=== PATIENT | male | born 1990 | race Caucasian/White ===

== ENCOUNTER 2017-06-08 00:38 | Emergency (ER) | payer BC ==
[2017-06-08 00:48] VITALS: RESP 18
--- NOTE | 2017-06-08 01:21 | ED ---
Eye Problem HPI - General Chief complaint: Eye Problems Stated complaint: FB in Eye Time Seen by Provider: 06/08/17 00:57 Source: patient, RN notes reviewed Mode of arrival: ambulatory Limitations: no limitations - History of Present Illness Initial comments: 27 yo male presents to the ER with cc of right eye swelling and irritation. Patient states that on his way into work today he noticed on the plan to work better for the flu" was eye. Since she's been rubbing and itching his eyes so he was concerned. Patient statesthat it was swollen so he thought that he should be seen. Patient states that when he opened the eye is no changes in vision but it is swollen shut. Patient states he was concerned due to the findings.Patient denies any recent fever, chills, shortness of breath, chest pain, back pain, abdominal pain, nausea vomiting, numbness or tingling, dysuria or hematuria, constipation or diarrhea, headaches or visual changes, or any other current symptoms. - Related Data Previous Rx's Medication Instructions Recorded Tobramycin 0.3% Ophth Oint [Tobrex 1 applic RIGHT EYE TID #1 tube 06/08/17 0.3% Ophth Oint] Allergies Allergy/AdvReac Type Severity Reaction Status Date / Time No Known Allergies Allergy Verified 06/08/17 00:48 Review of Systems ROS Statement: Those systems with pertinent positive or pertinent negative responses have been documented in the HPI. ROS Other: All systems not noted in ROS Statement are negative. Past Medical History Past Medical History: No Reported History History of Any Multi-Drug Resistant Organisms: None Reported Past Surgical History: No Surgical Hx Reported Past Psychological History: No Psychological Hx Reported Smoking Status: Never smoker Past Alcohol Use History: Occasional Past Drug Use History: None Reported General Exam Limitations: no limitations General appearance: alert, in no apparent distress Head exam: Present: atraumatic, normocephalic, normal inspection Eye exam: Present: PERRL, EOMI, conjunctival injection (To the right eye), periorbital swelling (No redness no induration). Absent: scleral icterus Pupils: Present: normal accommodation ENT exam: Present: normal exam, mucous membranes moist Neck exam: Present: normal inspection. Absent: tenderness, meningismus, lymphadenopathy Respiratory exam: Present: normal lung sounds bilaterally. Absent: respiratory distress, wheezes, rales, rhonchi, stridor Cardiovascular Exam: Present: regular rate, normal rhythm, normal heart sounds. Absent: systolic murmur, diastolic murmur, rubs, gallop, clicks Neurological exam: Present: alert, oriented X3 Psychiatric exam: Present: normal affect, normal mood Skin exam: Present: warm, dry, intact, normal color. Absent: rash Course Vital Signs 06/08/17 00:45 Temperature 98.0 F Pulse Rate 53 L Respiratory 18 Rate Blood Pressure 121/77 O2 Sat by Pulse 98 Oximetry Medical Decision Making - Medical Decision Making 27-year-old male presents emergency Department with a chief complaint of right thigh swelling. This time patient does appear to be of localized reaction. Most likely from the patient itching and thigh. With lamp examination does not show any abrasion. This time we discussed ice for the eye. We discussed that we will give him eye ointment to start tomorrow if he noticed any redness or drainage from the eye. We did discuss follow-up and return parameters. We did discuss follow-up with Dr. Quintanilla is given Dr. Nieves information. The patient is in agreement with this plan all questions have been answered. She will be discharged. Disposition Clinical Impression: Eye swelling, right Disposition: HOME SELF-CARE Condition: Stable Instructions: Eye Foreign Body (ED) Additional Instructions: Please use medication as discussed. Please follow up with family doctor if symptoms have not improved over the next two days. Please return to the emergency room if your symptoms increase or worsen or for any other concerns. Prescriptions: Tobramycin 0.3% Ophth Oint [Tobrex 0.3% Ophth Oint] 1 applic RIGHT EYE TID #1 tube Referrals: Kel Nieves MD [STAFF PHYSICIAN] - 1-2 days Time of Disposition: 01:20
[2017-06-08 01:55] VITALS: BP 132/60; PULSE 60; TEMP 98
== END 2017-06-08 01:47 | disposition home or self-care (01) ==
LOC: EC 00:38
DX: H57.8 Other specified disorders of eye and adnexa (principal)
CPT/HCPCS: 99283

== ENCOUNTER 2019-06-18 03:37 | Emergency (ER) | payer BC ==
[2019-06-18 03:43] VITALS: TEMP 97.9
--- NOTE | 2019-06-18 03:46 | ED ---
Chest Pain HPI - General Chief Complaint: Chest Pain Stated Complaint: Left chest,side,and arm pain Time Seen by Provider: 06/18/19 03:45 Source: patient Mode of arrival: ambulatory - History of Present Illness Initial Comments: Victor Hugo is a 29-year-old gentleman with no significant past medical history who presents the emergency department today for evaluation of left elbow pain radiating to his shoulder as well as left chest wall pain. Patient reports he works a physical job but he usually uses his right hand. Patient states that intermittently over the past couple of months he has noted some aching pain in his left elbow that seems to radiate down to his hand and up to his shoulder. Patient reports he was at work this evening when he began experiencing this discomfort. She denies any exertional chest pain, any history of cardiac disease, any shortness of breath lightheadedness or diaphoresis when he has the pain in his elbow or shoulder. Patient reports that today he also began feeling very had some pain in the ribs on his left side seem to be positional, worse with palpation. With all of this going on he was advised to come to the ER for further evaluation. - Related Data Previous Rx's Medication Instructions Recorded Tobramycin 0.3% Ophth Oint [Tobrex 1 applic RIGHT EYE TID #1 tube 06/08/17 0.3% Ophth Oint] Allergies Allergy/AdvReac Type Severity Reaction Status Date / Time No Known Allergies Allergy Verified 06/08/17 00:48 Review of Systems ROS Statement: Those systems with pertinent positive or pertinent negative responses have been documented in the HPI. ROS Other: All systems not noted in ROS Statement are negative. EKG Findings - EKG Comments: EKG Findings:: She was obtained due to complaint of chest pain, EKG was obtained at 3:51 AM, rate is 62 rhythm is sinus is normal axis her normal intervals, MT 152, QRS 96, QTC is [address] elevations or depressions there is no evidence of acute ischemia or infarction. Past Medical History Past Medical History: No Reported History History of Any Multi-Drug Resistant Organisms: None Reported Past Surgical History: No Surgical Hx Reported Past Psychological History: No Psychological Hx Reported Smoking Status: Never smoker Past Alcohol Use History: Occasional Past Drug Use History: None Reported General Exam - General Exam Comments Initial Comments: Physical Exam GENERAL: Patient is well-developed and well-nourished. Patient is nontoxic and well- hydrated and is in no distress. HENT: Normocephalic, Atraumatic. EYES: PERRL, EOMI PULMONARY: Unlabored respirations. No audible rales rhonchi or wheezing was noted. CARDIOVASCULAR: There is a regular rate and rhythm without any murmurs gallops or rubs. ABDOMEN: Soft and nontender with normal bowel sounds. SKIN: Skin is clear with no lesions or rashes and otherwise unremarkable. : Deferred NEUROLOGIC: Patient is alert and oriented x3. Moving all extremities spontaneously MUSCULOSKELETAL: Normal extremities with adequate strength and full range of motion. No lower extremity swelling or edema. No calf tenderness. PSYCHIATRIC: Normal psychiatric evaluation Course Vital Signs 06/18/19 06/18/19 03:39 05:24 Temperature 97.9 F Pulse Rate 66 59 L Respiratory 18 16 Rate Blood Pressure 128/78 123/76 O2 Sat by Pulse 100 99 Oximetry Chest Pain MDM - MDM History and physical exam concerning for musculoskeletal pain in the left elbow, possible tennis elbow type symptom Patient did complain of seems to be musculoskeletal left chest wall pain, EKG was obtained and was nonischemic, chest x-ray was unremarkable At this time I do not feel the patient has any risk factors for cardiac disease, history and physical exam are concerning for acute cardiac condition, patient's comfortable plan for discharge home, supportive care and outpatient follow-up with or fill for his elbow Disposition Clinical Impression: Atypical chest pain Disposition: HOME SELF-CARE Condition: Stable Instructions (If sedation given, give patient instructions): Costochondritis (ED) Is patient prescribed a controlled substance at d/c from ED?: No Referrals: None,Stated [Primary Care Provider] - 1-2 days
--- NOTE | 2019-06-18 05:19 | XR ---
EXAM: XR Chest, 2 Views CLINICAL HISTORY: ITS.REASON XR Reason: Pain TECHNIQUE: Frontal and lateral views of the chest. COMPARISON: No relevant prior studies available. FINDINGS: Lungs: No consolidation or mass. Pleural space: No effusion. Heart: No cardiomegaly. Mediastinum: Unremarkable. Bones/joints: No acute findings. IMPRESSION: No acute cardiopulmonary process.
[2019-06-18 05:26] VITALS: BP 123/76; PULSE 59; RESP 16
== END 2019-06-18 05:24 | disposition home or self-care (01) ==
LOC: EC 03:37
DX: R07.89 Other chest pain (principal); M25.522 Pain in left elbow
CPT/HCPCS: 71046; 93005; 99285

== ENCOUNTER → 2020-07-23 | Outpatient (CLI) | payer BC ==
--- NOTE | 2020-07-23 18:00 | ECHOF ---
Referral Reason:R07.89 chest pain, E66.9 obesity MEASUREMENTS -------- HEIGHT: 180.3 cm WEIGHT: 96.2 kg BP: RVIDd: 2.9 cm (< 3.3) IVSd: 0.8 cm (0.6 - 1.1) LVIDd: 4.8 cm (3.9 - 5.3) LVPWd: 1.1 cm (0.6 - 1.1) IVSs: 1.2 cm LVIDs: 3.1 cm LVPWs: 1.6 cm Ao Diam: 2.7 cm (2.0 - 3.7) AV Cusp: 2.2 cm (1.5 - 2.6) MV EXCURSION: 16.638 mm (> 18.000) MV EF SLOPE: 133 mm/s (70 - 150) EPSS: 0.3 cm MV E Ryan: 0.91 m/s MV DecT: 211 ms MV A Ryan: 0.53 m/s MV E/A Ratio: 1.70 RAP: 5.00 mmHg RVSP: 12.23 mmHg FINDINGS -------- Sinus rhythm. This was a technically good study. LV size, wall thickness and systolic function are normal, with an EF greater than 55%. The left chiquita tricular size is normal. The right ventricle is normal in size. The left atrial size is normal. The right atrial size is normal. The aortic valve is trileaflet, and appears structurally normal. No aortic stenosis or regurgitation. The mitral valve is normal. There is trace to mild mitral regurgitation. The tricuspid valve appears structurally normal. Trace tricuspid regurgitation present. Right chiquita tricular systolic pressure is normal at < 35 mmHg. There is no pulmonic regurgitation present. The aortic root size is normal. There is no pericardial effusion. CONCLUSIONS -------- 1. LV size, wall thickness and systolic function are normal, with an EF greater than 55%. 2. The left ventricular size is normal. 3. The left atrial size is normal. 4. The aortic valve is trileaflet, and appears structurally normal. No aortic stenosis or regurgitati on. 5. There is trace to mild mitral regurgitation. 6. Trace tricuspid regurgitation present. 7. There is no pericardial effusion. PIGMENT MIXER: Rosalie Judd RDCS
== END | disposition home or self-care (01) ==
LOC: RADECHMAIN 15:36
PROVIDERS: ATTEND Physician Assistant Medical
DX: R07.89 Other chest pain (principal); E66.9 Obesity, unspecified
CPT/HCPCS: 93306

== ENCOUNTER → 2020-07-26 | Outpatient (CLI) | payer BC ==
--- NOTE | 2020-08-04 10:17 | P.HOLTER ---
This is a report on the 24-hour monitor. Baseline EKG showed sinus rhythm with normal AK interval and QRS duration. Of the minimal heart rate is 53. Maximum is 145 with an average of 100. Occasional PVCs were noted. No Sigmund bradyarrhythmias or pauses noted. Patient did not report any cardiac symptoms. Final impression #1. Sinus rhythm. #2. Occasional PVCs #3. No sustained arrhythmias . #4. No bradyarrhythmias. #5. Patient did not report any cardiac symptoms
--- NOTE | 2020-08-04 12:12 | HM ---
This is a report on the 24-hour monitor. Baseline EKG showed sinus rhythm with normal TN interval and QRS duration. Of the minimal heart rate is 53. Maximum is 145 with an average of 100. Occasional PVCs were noted. No Sigmund bradyarrhythmias or pauses noted. Patient did not report any cardiac symptoms. Final impression #1. Sinus rhythm. #2. Occasional PVCs #3. No sustained arrhythmias . #4. No bradyarrhythmias. #5. Patient did not report any cardiac symptoms MTDD
== END | disposition home or self-care (01) ==
LOC: RADECHMAIN 11:36
PROVIDERS: ATTEND Physician Assistant Medical
DX: R07.9 Chest pain, unspecified (principal)
CPT/HCPCS: 93225; 93226

== ENCOUNTER 2021-04-06 02:35 | Emergency (ER) | payer BC ==
[2021-04-06 02:50] VITALS: RESP 18; TEMP 98.5
[2021-04-06] MEDS ORDERED: SODIUM CHLORIDE 0.9% 1,000 ML IV STA (03:07)
[2021-04-06] MEDS ORDERED: ONDANSETRON 4 MG/2 ML VIAL IVP STA (03:12)
[2021-04-06] MEDS ORDERED: MORPHINE SULFATE 4 MG/ML SYRINGE IVP STA (03:12)
[2021-04-06] MEDS ORDERED: PANTOPRAZOLE 40 MG/10 ML VIAL IVP STA (03:12)
--- NOTE | 2021-04-06 03:13 | ED ---
Abdominal Pain HPI - General Chief Complaint: Abdominal Pain Stated Complaint: Abd Pain Time Seen by Provider: 04/06/21 02:39 Source: patient, RN notes reviewed, old records reviewed Mode of arrival: ambulatory Limitations: no limitations - History of Present Illness Initial Comments: This 30-year-old male DF for evaluation. Patient presents today for evaluation regards to abdominal pain periumbilical abdominal pain with generalized diffuse abdominal pain. No fevers mild nausea no vomiting no diarrhea. Patient denies coronavirus contacts. Patient states he is unable to going to work wasn't feeling well. No medical history takes no medications no surgeries MD Complaint: abdominal pain -: hour(s) Location: diffuse, periumbilical Radiation: none Migration to: periumbilical, epigastric Severity: moderate Severity scale (1-10): 4 Quality: cramping, aching Consistency: constant Improves With: nothing Worsens With: nothing Context: possible food poisoning Associated Symptoms: nausea, vomiting, diarrhea Treatments Prior to Arrival: other (none) - Related Data Previous Rx's Medication Instructions Recorded Tobramycin 0.3% Ophth Oint [Tobrex 1 applic RIGHT EYE TID #1 tube 06/08/17 0.3% Ophth Oint] Allergies Allergy/AdvReac Type Severity Reaction Status Date / Time No Known Allergies Allergy Verified 04/06/21 02:50 Review of Systems ROS Statement: Those systems with pertinent positive or pertinent negative responses have been documented in the HPI. ROS Other: All systems not noted in ROS Statement are negative. Past Medical History Past Medical History: No Reported History History of Any Multi-Drug Resistant Organisms: None Reported Past Surgical History: No Surgical Hx Reported Past Psychological History: No Psychological Hx Reported Smoking Status: Never smoker Past Alcohol Use History: Occasional Past Drug Use History: None Reported General Exam Limitations: no limitations General appearance: alert, in no apparent distress Head exam: Present: atraumatic, normocephalic, normal inspection Eye exam: Present: normal appearance, PERRL, EOMI. Absent: scleral icterus, conjunctival injection, periorbital swelling ENT exam: Present: normal exam, mucous membranes moist Neck exam: Present: normal inspection. Absent: tenderness, meningismus, lymphadenopathy Respiratory exam: Present: normal lung sounds bilaterally. Absent: respiratory distress, wheezes, rales, rhonchi, stridor Cardiovascular Exam: Present: regular rate, normal rhythm, normal heart sounds. Absent: systolic murmur, diastolic murmur, rubs, gallop, clicks GI/Abdominal exam: Present: soft, normal bowel sounds. Absent: distended, tenderness, guarding, rebound, rigid Extremities exam: Present: normal inspection, full ROM, normal capillary refill. Absent: tenderness, pedal edema, joint swelling, calf tenderness Back exam: Present: normal inspection Neurological exam: Present: alert, oriented X3, CN II-XII intact Psychiatric exam: Present: normal affect, normal mood Skin exam: Present: warm, dry, intact, normal color. Absent: rash Course Vital Signs 04/06/21 04/06/21 02:48 05:12 Temperature 98.5 F 98.5 F Pulse Rate 70 66 Respiratory 18 18 Rate Blood Pressure 132/92 130/83 O2 Sat by Pulse 100 100 Oximetry - Reevaluation(s) Reevaluation #1: Medical record is reviewed Patient reevaluated in the emergency department, symptoms resolved Patient informed results questions answered Patient feels good for discharge Medical Decision Making - Medical Decision Making 30 male with nonspecific abdominal pain. Patient does have normal lab tests, normal computed tomography scan. Patient can be discharged home - Lab Data Result diagrams: 04/06/21 03:34 04/06/21 03:34 Lab Results 04/06/21 04/06/21 04/06/21 Range/Units 03:34 03:34 03:34 WBC 9.9 (3.8-10.6) k/uL RBC 5.38 (4.30-5.90) m/uL Hgb 17.6 H (13.0-17.5) gm/dL Hct 49.6 (39.0-53.0) % MCV 92.2 (80.0-100.0) fL MCH 32.8 (25.0-35.0) pg MCHC 35.5 (31.0-37.0) g/dL RDW 11.6 (11.5-15.5) % Plt Count 199 (150-450) k/uL MPV 7.6 Neutrophils % 72 % Lymphocytes % 15 % Monocytes % 6 % Eosinophils % 5 % Basophils % 1 % Neutrophils # 7.1 (1.3-7.7) k/uL Lymphocytes # 1.4 (1.0-4.8) k/uL Monocytes # 0.6 (0-1.0) k/uL Eosinophils # 0.5 (0-0.7) k/uL Basophils # 0.1 (0-0.2) k/uL Sodium 138 (137-145) mmol/L Potassium 4.1 (3.5-5.1) mmol/L Chloride 105 (98-107) mmol/L Carbon Dioxide 25 (22-30) mmol/L Anion Gap 8 mmol/L BUN 11 (9-20) mg/dL Creatinine 1.01 (0.66-1.25) mg/dL Est GFR (CKD-EPI)AfAm >90 (>60 ml/min/1.73 sqM) Est GFR (CKD-EPI)NonAf >90 (>60 ml/min/1.73 sqM) Glucose 99 (74-99) mg/dL Plasma Lactic Acid [place] (0.7-2.0) mmol/L Calcium 10.0 (8.4-10.2) mg/dL Total Bilirubin 0.7 (0.2-1.3) mg/dL AST 25 (17-59) U/L ALT 22 (4-49) U/L Alkaline Phosphatase 60 (38-126) U/L Creatine Kinase 90 (55-170) U/L CK-MB (CK-2) (0.0-2.4) ng/mL Total Protein 6.7 (6.3-8.2) g/dL Albumin 4.3 (3.5-5.0) g/dL Amylase 51 (30-110) U/L Lipase 57 (23-300) U/L Urine Color Light Yellow Urine Appearance Clear (Clear) Urine pH 6.5 (5.0-8.0) Ur Specific [place] 1.009 (1.001-1.035) Urine Protein Negative (Negative) Urine Glucose (UA) Negative (Negative) Urine Ketones Negative (Negative) Urine Blood Negative (Negative) Urine Nitrite Negative (Negative) Urine Bilirubin Negative (Negative) Urine Urobilinogen <2.0 (<2.0) mg/dL Ur Leukocyte Esterase Negative (Negative) 04/06/21 04/06/21 Range/Units 03:34 03:34 WBC (3.8-10.6) k/uL RBC (4.30-5.90) m/uL Hgb (13.0-17.5) gm/dL Hct (39.0-53.0) % MCV (80.0-100.0) fL MCH (25.0-35.0) pg MCHC (31.0-37.0) g/dL RDW (11.5-15.5) % Plt Count (150-450) k/uL MPV Neutrophils % % Lymphocytes % % Monocytes % % Eosinophils % % Basophils % % Neutrophils # (1.3-7.7) k/uL Lymphocytes # (1.0-4.8) k/uL Monocytes # (0-1.0) k/uL Eosinophils # (0-0.7) k/uL Basophils # (0-0.2) k/uL Sodium (137-145) mmol/L Potassium (3.5-5.1) mmol/L Chloride (98-107) mmol/L Carbon Dioxide (22-30) mmol/L Anion Gap mmol/L BUN (9-20) mg/dL Creatinine (0.66-1.25) mg/dL Est GFR (CKD-EPI)AfAm (>60 ml/min/1.73 sqM) Est GFR (CKD-EPI)NonAf (>60 ml/min/1.73 sqM) Glucose (74-99) mg/dL Plasma Lactic Acid [place] 1.2 (0.7-2.0) mmol/L Calcium (8.4-10.2) mg/dL Total Bilirubin (0.2-1.3) mg/dL AST (17-59) U/L ALT (4-49) U/L Alkaline Phosphatase (38-126) U/L Creatine Kinase (55-170) U/L CK-MB (CK-2) 0.6 (0.0-2.4) ng/mL Total Protein (6.3-8.2) g/dL Albumin (3.5-5.0) g/dL Amylase (30-110) U/L Lipase (23-300) U/L Urine Color Urine Appearance (Clear) Urine pH (5.0-8.0) Ur Specific [place] (1.001-1.035) Urine Protein (Negative) Urine Glucose (UA) (Negative) Urine Ketones (Negative) Urine Blood (Negative) Urine Nitrite (Negative) Urine Bilirubin (Negative) Urine Urobilinogen (<2.0) mg/dL Ur Leukocyte Esterase (Negative) - Radiology Data Radiology results: report reviewed (CT abdomen and pelvis negative for acute disease), image reviewed Disposition Clinical Impression: Abdominal pain Disposition: HOME SELF-CARE Condition: Good Instructions (If sedation given, give patient instructions): Abdominal Pain (ED) Is patient prescribed a controlled substance at d/c from ED?: No Referrals: Aman Daugherty DO [Primary Care Provider] - 1-2 days
--- NOTE | 2021-04-06 03:29 | XR ---
EXAM: XR Abdomen, 2 Views CLINICAL HISTORY: ITS.REASON XR Reason: abdominal pain TECHNIQUE: Frontal view of the abdomen/pelvis with upright view of the abdomen. COMPARISON: No relevant prior studies available. FINDINGS: Intraperitoneal space: No free air. Gastrointestinal tract: Unremarkable. No dilation. Mild fecal burden throughout the colon. Bones/joints: Unremarkable. IMPRESSION: Nonobstructive bowel gas pattern. Mild fecal burden throughout the colon.
[2021-04-06 04:02] LABS: Basophils # (A) 0.1 k/uL (0-0.2); Basophils % (A) 1 %; Eosinophils # (A) 0.5 k/uL (0-0.7); Eosinophils % (A) 5 %; HCT 49.6 % (39.0-53.0); HGB 17.6 gm/dL (13.0-17.5); Lymphocytes # (A) 1.4 k/uL (1.0-4.8); Lymphocytes % (A) 15 %; MCH 32.8 pg (25.0-35.0); MCHC 35.5 g/dL (31.0-37.0); MCV 92.2 fL (80.0-100.0); Mean Platelet Volume 7.6; Monocytes # (A) 0.6 k/uL (0-1.0); Monocytes % (A) 6 %; Neutrophils # (A) 7.1 k/uL (1.3-7.7); Neutrophils % (A) 72 %; Platelet Count 199 k/uL (150-450); RBC 5.38 m/uL (4.30-5.90); RDW 11.6 % (11.5-15.5); WBC 9.9 k/uL (3.8-10.6)
--- NOTE | 2021-04-06 04:11 | CT ---
EXAM: CT Abdomen and Pelvis With Intravenous Contrast CLINICAL HISTORY: ITS.REASON CT Reason: pain TECHNIQUE: Axial computed tomography images of the abdomen and pelvis with intravenous contrast. CTDI is 25.17 mGy and DLP is 1065.3 mGy-cm. This CT exam was performed using one or more of the following dose reduction techniques: automated exposure control, adjustment of the mA and/or kV according to patient size, and/or use of iterative reconstruction technique. COMPARISON: No relevant prior studies available. FINDINGS: Lung bases: Unremarkable. No mass. No consolidation. ABDOMEN: Liver: Unremarkable. No mass. Gallbladder and bile ducts: Unremarkable. No calcified stones. No ductal dilation. Pancreas: Unremarkable. No mass. No ductal dilation. Spleen: Unremarkable. No splenomegaly. Adrenals: Unremarkable. No mass. Kidneys and ureters: Unremarkable. No solid mass. No hydronephrosis. Stomach and bowel: Unremarkable. No obstruction. No mucosal thickening. PELVIS: Appendix: No findings to suggest acute appendicitis. Bladder: Unremarkable. No mass. Reproductive: Unremarkable as visualized. ABDOMEN and PELVIS: Intraperitoneal space: Unremarkable. No free air. No significant fluid collection. Bones/joints: No acute fracture. No dislocation. Soft tissues: Unremarkable. Vasculature: Unremarkable. No abdominal aortic aneurysm. Lymph nodes: Unremarkable. No enlarged lymph nodes. IMPRESSION: No acute intra-abdominal process.
[2021-04-06 04:45] LABS: ALT 22 U/L (4-49); AST 25 U/L (17-59); African American GFR (CKD) >90 (>60 ml/min/1.73 sqM); Albumin 4.3 g/dL (3.5-5.0); Alkaline Phosphatase 60 U/L (38-126); Amylase 51 U/L (30-110); Anion Gap 8 mmol/L; Blood Urea Nitrogen 11 mg/dL (9-20); Carbon Dioxide 25 mmol/L (22-30); Chloride 105 mmol/L (98-107); Creatine Kinase 90 U/L (55-170); Glucose 99 mg/dL (74-99); Lipase 57 U/L (23-300); Non-African American GFR(CKD) >90 (>60 ml/min/1.73 sqM); Potassium 4.1 mmol/L (3.5-5.1); Sodium 138 mmol/L (137-145); Total Bilirubin 0.7 mg/dL (0.2-1.3); Total Protein 6.7 g/dL (6.3-8.2)
[2021-04-06 04:51] LABS: Appearance,Urine Clear (Clear); Bilirubin,Urine Negative (Negative); Blood,Urine Negative (Negative); Color,Urine Light Yellow; Glucose,Urine (UA) Negative (Negative); Ketones,Urine Negative (Negative); Leukocyte Esterase,Urine Negative (Negative); Nitrite,Urine Negative (Negative); PH, Urine 6.5 (5.0-8.0); Protein,Urine Negative (Negative); Specific Gravity,Urine 1.009 (1.001-1.035); Urobilinogen,Urine <2.0 mg/dL (<2.0)
[2021-04-06 05:13] VITALS: BP 130/83; PULSE 66
== END 2021-04-06 05:19 | disposition home or self-care (01) ==
LOC: EC 02:35
DX: R10.33 Periumbilical pain (principal); R10.13 Epigastric pain
CPT/HCPCS: 36415; 80053; 82150; 82550; 82553; 83605; 83690; 85025; 81003; 74018; 74177; 99284; 96374; 96375 ×2; J2270; J2405; C9113